=== PATIENT | female | born 1935 | race Caucasian/White ===

== ENCOUNTER 2019-06-05 13:35 | Emergency (ER) | payer MEDICARE, BC ==
--- NOTE | 2019-06-05 13:46 | ED ---
Complex/Multi-Sys Presentation - HPI Summary HPI Summary: 84 year old F presenting to [facility] via EMS with a chief complaint of anxiety, depression, and difficulty urinating since yesterday. The patient rates the pain _/10 in severity. Symptoms aggravated by nothing. Symptoms alleviated by nothing. Patient reports abdominal pain secondary to being unable to urinate, thoughts of harming herself last night, and frustration with her overnight aide. Patient denies dysuria, fever, chills, or vomiting. The patient states that she ate breakfast then went back to bed. She denies any cigarette or alcohol use. Medication list reviewed. Allergy list reviewed. Home Medications Medication Instructions Recorded Confirmed Type Aspirin 81 1 tab PO DAILY 05/03/14 05/03/14 History Levothyroxine TAB* [Synthroid 88 1 tab PO DAILY 05/03/14 05/03/14 History MCG TAB*] Losartan Potassium & Hydrochlo 1 tab PO DAILY 05/03/14 05/03/14 History [Losartan Potassium/Hydroc 100-25 mg] Metoprolol 50 mg PO BEDTIME 05/03/14 05/03/14 History Ranitidine TAB (NF) [Zantac TAB 300 mg PO BEDTIME 05/03/14 05/03/14 History (NF)] Simvastatin 1 tab PO DAILY 05/03/14 05/03/14 History - History Of Current Complaint Hx Obtained From: Patient, EMS Onset/Duration: Lasting Hours, Still Present Timing: Constant Associated Signs And Symptoms: Positive: Abdominal Pain - Allergies/Home Medications Allergies/Adverse Reactions: Allergies Allergy/AdvReac Type Severity Reaction Status Date / Time Environmental Allergies Allergy Congestion Uncoded 06/05/19 13:41 Home Medications: Home Medications Aspirin 81 1 tab PO DAILY 05/03/14 [History Confirmed 05/03/14] Levothyroxine TAB* [Synthroid 88 MCG TAB*] 1 tab PO DAILY 05/03/14 [History Confirmed 05/03/14] Losartan Potassium & Hydrochlo [Losartan Potassium/Hydroc 100-25 mg] 1 tab PO DAILY 05/03/14 [History Confirmed 05/03/14] Metoprolol 50 mg PO BEDTIME 05/03/14 [History Confirmed 05/03/14] Ranitidine TAB (NF) [Zantac TAB (NF)] 300 mg PO BEDTIME 05/03/14 [History Confirmed 05/03/14] Simvastatin 1 tab PO DAILY 05/03/14 [History Confirmed 05/03/14] PMH/Surg Hx/FS Hx/Imm Hx Endocrine/Hematology History: Reports: Hx Thyroid Disease Denies: Hx Diabetes Cardiovascular History: Reports: Hx Hypertension Respiratory History: Reports: Hx Asthma Denies: Hx Chronic Obstructive Pulmonary Disease (COPD) GI History: Denies: Hx Ulcer - Surgical History Surgery Procedure, Year, and Place: Repair fractured leg and wrist Infectious Disease History: No Infectious Disease History: Denies: Hx Clostridium Difficile, Hx Hepatitis, Hx Human Immunodeficiency Virus (HIV), Hx of Known/Suspected MRSA, Hx Shingles, Hx Tuberculosis, Hx Known/ Suspected VRE, Hx Known/Suspected VRSA, History Other Infectious Disease, Traveled Outside the [place] in Last 30 Days - Social History Alcohol Use: Daily Alcohol Amount: 1 per day Substance Use Type: Reports: None Smoking Status (MU): Former Smoker Length of Time of Smoking/Using Tobacco: 20 years Physical Exam Vital Signs On Initial Exam: Initial Vitals Temp Pulse Resp BP Pulse Ox 98.1 F 66 16 191/81 98 06/05/19 13:36 06/05/19 13:36 06/05/19 13:36 06/05/19 13:36 06/05/19 13:36 Diagnostics - Vital Signs Vital Signs Temp Pulse Resp BP Pulse Ox 06/05/19 13:36 98.1 F 66 16 191/81 98 - Laboratory Lab Statement: Any lab studies that have been ordered have been reviewed, and results considered in the medical decision making process. Discharge ED - Discharge Plan Referrals: Hoda Mathias MD [Primary Care Provider] - - Attestation Statements Document Initiated by Scribe: Yes
[2019-06-05 13:55] LABS: ABS Eosinophils 0.2 10^3/ul (0-0.6); ABS Lymphocytes 1.2 10^3/ul (1.0-4.8); ABS Monocytes 0.6 10^3/ul (0-0.8); ABS Neutrophils 3.8 10^3/ul (1.5-7.7); Eosinophil % 2.9 %; Hematocrit 39 % (35-47); Hemoglobin 13.2 g/dL (12.0-16.0); Lymphocyte % 21.3 %; Mean Corpuscular HGB Conc 34 g/dL (31-36); Mean Corpuscular Hemoglobin 31 pg (27-31); Mean Corpuscular Volume 91 fL (80-97); Mean Platelet Volume 6.9 fL (7.4-10.4); Platelet Count 188 10^3/uL (150-450); Red Blood Count 4.26 10^6 /uL (3.70-4.87); Red Cell Distribution Width 16 % (10-15); White Blood Count 5.8 10^3/uL (3.5-10.8)
[2019-06-05 14:02] LABS: INR 1.02 (0.82-1.09)
[2019-06-05 14:37] LABS: Albumin 4.1 g/dL (3.2-5.2); Albumin/Globulin Ratio 1.5 (1-3); BUN/Creatinine Ratio 10.3 (8-20); Calcium 9.1 mg/dL (8.6-10.3); EGFR African American 53.7 (>60); EGFR Non-African American 44.4 (>60); Globulin 2.7 g/dL (2-4); Total Bilirubin 0.3 mg/dL (0.2-1.0); Total Protein 6.8 g/dL (6.4-8.9)
--- NOTE | 2019-06-05 14:38 | ED ---
Lower Extremity - HPI Summary HPI Summary: 84 year old F presenting to [facility] accompanied by her female ophthalmic aide with a chief complaint of right foot swelling since yesterday morning. PCP ordered US of her RLE today, US revealed blood clot in her right leg. Patient was sent to ED for further workup. The patient rates the pain 0/10 in severity. Symptoms aggravated by nothing. Symptoms alleviated by nothing. Patient denies any chest pain, shortness of breath, or recent long travel. The patient reports being a former smoker. Home medications and allergies are reviewed. Home Medications Medication Instructions Recorded Confirmed Type Aspirin 81 1 tab PO DAILY 05/03/14 05/03/14 History Levothyroxine TAB* [Synthroid 88 1 tab PO DAILY 05/03/14 05/03/14 History MCG TAB*] Losartan Potassium & Hydrochlo 1 tab PO DAILY 05/03/14 05/03/14 History [Losartan Potassium/Hydroc 100-25 mg] Metoprolol 50 mg PO BEDTIME 05/03/14 05/03/14 History Ranitidine TAB (NF) [Zantac TAB 300 mg PO BEDTIME 05/03/14 05/03/14 History (NF)] Simvastatin 1 tab PO DAILY 05/03/14 05/03/14 History - History of Current Complaint Chief Complaint: EDExtremityLower Stated Complaint: BLOOD CLOT RIGHT LEG PER DAUGHTER Time Seen by Provider: 06/05/19 14:30 Hx Obtained From: Patient Severity Currently: None Pain Intensity: 0 Pain Scale Used: 0-10 Numeric Timing: Constant Location: Is Discrete @ - Right Foot Associated Signs And Symptoms: Positive: Swelling Aggravating Factor(s): Nothing Alleviating Factor(s): Nothing Able to Bear Weight: Yes - Allergies/Home Medications Allergies/Adverse Reactions: Allergies Allergy/AdvReac Type Severity Reaction Status Date / Time Environmental Allergies Allergy Congestion Uncoded 06/05/19 13:41 Home Medications: Home Medications Aspirin 81 1 tab PO DAILY 05/03/14 [History Confirmed 05/03/14] Levothyroxine TAB* [Synthroid 88 MCG TAB*] 1 tab PO DAILY 05/03/14 [History Confirmed 05/03/14] Losartan Potassium & Hydrochlo [Losartan Potassium/Hydroc 100-25 mg] 1 tab PO DAILY 05/03/14 [History Confirmed 05/03/14] Metoprolol 50 mg PO BEDTIME 05/03/14 [History Confirmed 05/03/14] Ranitidine TAB (NF) [Zantac TAB (NF)] 300 mg PO BEDTIME 05/03/14 [History Confirmed 05/03/14] Simvastatin 1 tab PO DAILY 05/03/14 [History Confirmed 05/03/14] Apixaban* [Eliquis*] 5 mg PO BID 30 Days #70 tab 06/05/19 [Rx] PMH/Surg Hx/FS Hx/Imm Hx Endocrine/Hematology History: Reports: Hx Thyroid Disease Denies: Hx Diabetes Cardiovascular History: Reports: Hx Hypertension Respiratory History: Reports: Hx Asthma Denies: Hx Chronic Obstructive Pulmonary Disease (COPD) GI History: Denies: Hx Ulcer - Surgical History Surgery Procedure, Year, and Place: Repair fractured leg and wrist Infectious Disease History: No Infectious Disease History: Denies: Hx Clostridium Difficile, Hx Hepatitis, Hx Human Immunodeficiency Virus (HIV), Hx of Known/Suspected MRSA, Hx Shingles, Hx Tuberculosis, Hx Known/ Suspected VRE, Hx Known/Suspected VRSA, History Other Infectious Disease, Traveled Outside the [place] in Last 30 Days - Family History Known Family History: Positive: Diabetes, Other - CVA-Father - Social History Alcohol Use: Daily Alcohol Amount: 1 per day Substance Use Type: Reports: None Smoking Status (MU): Former Smoker Length of Time of Smoking/Using Tobacco: 20 years Review of Systems Positive: Other - Blood clot in right leg Negative: Chest Pain Negative: Shortness Of Breath Positive: Other - Right foot swelling All Other Systems Reviewed And Are Negative: Yes Physical Exam - Summary Physical Exam Summary: Constitutional: Well-developed, Well-nourished, Alert. (-) Distressed Skin: Warm, Dry HENT: Normocephalic; Atraumatic Eyes: Conjunctiva normal Neck: Musculoskeletal ROM normal neck. (-) JVD, (-) Stridor, (-) Tracheal deviation Cardio: Rhythm regular, rate normal, Heart sounds normal; Intact distal pulses; Radial pulses are 2+ and symmetric. (-) Murmur Pulmonary/Chest wall: Effort normal. (-) Respiratory distress, (-) Wheezes, (-) Rales Abd: Soft, (-) tenderness, (-) Distension, (-) Guarding, (-) Rebound Musculoskeletal: 2+ Edema; right lower extremity swollen compared to left; no erythema; no color change. Lymph: (-) Cervical adenopathy Neuro: Alert, Oriented x3 Psych: Mood and affect Normal Triage Information Reviewed: Yes Vital Signs On Initial Exam: Initial Vitals Temp Pulse Resp BP Pulse Ox 98.1 F 66 16 191/81 98 06/05/19 13:36 06/05/19 13:36 06/05/19 13:36 06/05/19 13:36 06/05/19 13:36 Vital Signs Reviewed: Yes Procedures - Sedation Patient Received Moderate/Deep Sedation with Procedure: No Diagnostics - Vital Signs Vital Signs Temp Pulse Resp BP Pulse Ox 06/05/19 13:36 98.1 F 66 16 191/81 98 - Laboratory Lab Results: Lab Results 06/05/19 06/05/19 Range/Units 13:49 13:49 WBC 5.8 (3.5-10.8) 10^3/uL RBC 4.26 (3.70-4.87) 10^6 /uL Hgb 13.2 (12.0-16.0) g/dL Hct 39 (35-47) % MCV 91 (80-97) fL MCH 31 (27-31) pg MCHC 34 (31-36) g/dL RDW 16 H (10-15) % Plt Count 188 (150-450) 10^3/uL MPV 6.9 L (7.4-10.4) fL Neut % (Auto) 64.6 % Lymph % (Auto) 21.3 % Leslie % (Auto) 10.6 % Eos % (Auto) 2.9 % Baso % (Auto) 0.6 % Absolute Neuts (auto) 3.8 (1.5-7.7) 10^3/ul Absolute Lymphs (auto) 1.2 (1.0-4.8) 10^3/ul Absolute Monos (auto) 0.6 (0-0.8) 10^3/ul Absolute Eos (auto) 0.2 (0-0.6) 10^3/ul Absolute Basos (auto) 0.0 (0-0.2) 10^3/ul Absolute Nucleated RBC 0.0 10^3/ul Nucleated RBC % 0.0 INR (Anticoag Therapy) 1.02 (0.82-1.09) Result Diagrams: 06/05/19 13:49 06/05/19 13:49 Lab Statement: Any lab studies that have been ordered have been reviewed, and results considered in the medical decision making process. Lower Extremity Course/Dx - Course Course Of Treatment: Patient is here with a diagnosed DVT that occurred today. Patient's had leg swelling for roughly 24 hours and had an outpatient ultrasound showed a DVT. Patient has no signs or symptoms of PE on exam. Patient has no evidence of limb ischemia on exam. Patient had blood performed which showed slightly elevated creatinine which is her baseline. Patient was started on Eliquis. - Diagnoses Provider Diagnoses: DVT (deep venous thrombosis) Discharge ED - Sign-Out/Discharge Documenting (check all that apply): Patient Departure - Discharge Plan Condition: Stable Disposition: HOME Prescriptions: Apixaban* [Eliquis*] 5 mg PO BID 30 Days #70 tab Patient Education Materials: Deep Vein Thrombosis (ED) Referrals: Hoda Mathias MD [Primary Care Provider] - 3 Days Additional Instructions: Follow-up with Dr. Mathias in 1-3 days. Take your medication as prescribed. Go to the pharmacy to pick it up right away. Return to the emergency department for any chest pain, shortness of breath, heavy falls, rectal bleeding, vaginal bleeding, or uncontrollable nose bleeding. Do not massage your leg. Take Tylenol and use a heating pad for pain. - Billing Disposition and Condition Condition: STABLE Disposition: Home - Attestation Statements Document Initiated by Janna: Yes Documenting Scribe: Joann Randolph Provider For Whom Janna is Documenting (Include Credential): Ron Gibson MD Scribe Attestation: Joann Dolan, scribed for Ron Gibson MD on at 1836. Scribe Documentation Reviewed: Yes Provider Attestation: The documentation as recorded by the janna, Joann Randolph accurately reflects the service I personally performed and the decisions made by , Ron Gibson MD Status of Scribe Document: Viewed
--- OUTSIDE RECORDS SUMMARY | 2019-06-05 14:52 | XMS REPORT | Continuity of Care Document ---
:1935 External Reference #:[id number] Author Name Sapna Borges N.P. 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 Active Problems Provider Date Chronic kidney disease Hoda Mathias MD Onset: 04/18/2019 Mixed hyperlipidemia Hoda Mathias MD Onset: 04/18/2019 Hypothyroidism Hoda Mathias MD Onset: 04/18/2019 Essential hypertension Hoda Mathias MD Onset: 04/18/2019 Social History Type Date Description Comments Sex Unknown ETOH Use Occasionally consumes alcohol Tobacco Use Start: Unknown End: Patient is a former 50 pack years, quit Unknown smoker at age 72 Smoking Status Reviewed: 05/21/19 Patient is a former 50 pack years, quit smoker at age 72 Exercise Exercises regularly Type/Frequency Allergies, Adverse Reactions, Alerts Description No Known Drug Allergies Medications Active Medications SIG Qnty Indications Ordering Provider Date Meclizine HCL take 1 tablet by 14tabs R42 Hoda Mathias MD 02/10/2019 25mg mouth every 8 Tablets hours as needed for vertigo Synthroid Take one tablet 90tabs Hoda Mathias MD 09/10/2018 100mcg daily in morning Tablets Simvastatin 1 by mouth every 90tabs Hoda Mathias MD 20mg day Tablets Metoprolol Succinate Take 1 Tablet By 90tabs Hdoa Mathias MD ER Mouth Every Day 50mg Tablets ER 24HR Melatonin ER 2 tab by mouth as Unknown 10mg needed for sleep Tablets ER Benadryl 2 tabs by mouth Unknown 25mg Capsules at bedtime as needed History Medications Benzonatate take one capsule 30caps R05 Hoda Mathias MD 03/25/2019 - 100mg every 8 hours as 04/08/2019 Capsules needed Proair HFA one puff every 6 8.500gm R05 Hoda Mathias MD 03/25/2019 - 108(90Base) hours 04/08/2019 mcg/Act Aerosol Medications Administered in Office Medication SIG Qnty Indications Ordering Provider Date Depomedrol 40MG Steffen Brown M.D. 10/14/2015 Injection Immunizations CPT Code Status Date Vaccine Lot # [id number] Given 03/11/2018 Fluzone High Dose [id number] Vital Signs Date Vital Result Comment 05/21/2019 3:12pm Height 60 inches 5'0" Weight 140.00 lb Heart Rate 76 /min BP Systolic Sitting 140 mmHg BP Diastolic Sitting 70 mmHg Body Temperature 97.4 F O2 % BldC Oximetry 98 % BMI (Body Mass Index) 27.3 kg/m2 04/18/2019 1:00pm Height 60 inches 5'0" Weight 139.00 lb Heart Rate 74 /min BP Systolic Sitting 133 mmHg BP Diastolic Sitting 73 mmHg Body Temperature 98.9 F O2 % BldC Oximetry 97 % BMI (Body Mass Index) 27.1 kg/m2 Results Test Acquired Date Facility Test Result H/L Range Note Laboratory test 04/18/2019 [facility] TSH 0.85 Normal 0.34- 5.[address] (Thyroid mcIU/[place] [address] Stim Horm) [phone] Urinalysis 03/18/2019 [facility] Urine Yellow Profile [address] [place] [address] [phone] Urine Appearance Clear Urine Specific [place] 1.017 Normal 1.010-1.030 Urine pH 6.0 Normal 5-9 Urine Urobilinogen Negative Negative Urine Ketones Negative Negative Urine Protein Negative Negative Urine Leukocytes Trace Abnormal Negative Urine Blood Negative Negative Urine Nitrite Negative Negative Urine Bilirubin Negative Negative Urine Glucose Negative Negative Urine White Blood Cell Trace(0-5/hpf) Absent Urine Red Blood Cell Absent Absent Urine Bacteria Absent Absent Urine Squamous Epithelial Cell Present Abnormal Absent Urine Culture And 03/18/2019 [facility] Urine Culture SEE RESULT [address] [place] [address] [phone] Basic Metabolic 03/18/2019 [facility] Sodium 131 mmol/L Low 135-[address] [place] [address] [phone] Potassium 4.3 mmol/L Normal 3.5-5.0 Chloride 96 mmol/L Low 101-111 Co2 Carbon Dioxide 28 mmol/L Normal 22-32 Anion Gap 7 mmol/L Normal 2-11 Glucose 101 mg/dL High 70-100 Blood Urea Nitrogen 18 mg/dL Normal 6-24 Creatinine 1.80 mg/dL High 0.51-0.95 BUN/Creatinine Ratio 10.0 Normal 8-20 Calcium 9.1 mg/dL Normal 8.6-10.3 Egfr Non- 26.8 >60 Egfr 32.4 >60 2 CBC Auto 03/18/2019 [facility] White Blood 10.4 10^3/uL Normal 3.5-10.[address] [place] [address] [phone] Red Blood Count 4.17 10^6/uL Normal 3.70-4.87 Hemoglobin 12.9 g/dL Normal 12.0-16.0 Hematocrit 38 % Normal 35-47 Mean Corpuscular Volume 91 fL Normal 80-97 Mean Corpuscular Hemoglobin 31 pg Normal 27-31 Mean Corpuscular HGB Conc 34 g/dL Normal 31-36 Red Cell Distribution Width 14 % Normal 10-15 Platelet Count 178 10^3/uL Normal 150-450 Mean Platelet Volume 7.5 fL Normal 7.4-10.4 Abs Neutrophils 7.5 10^3/uL Normal 1.5-7.7 Abs Lymphocytes 1.3 10^3/uL Normal 1.0-4.8 Abs Monocytes 1.6 10^3/uL High 0-0.8 Abs Eosinophils 0.1 10^3/uL Normal 0-0.6 Abs Basophils 0.0 10^3/uL Normal 0-0.2 Abs Nucleated RBC 0.0 10^3/uL Granulocyte % 71.6 % Lymphocyte % 12.4 % Monocyte % 15.1 % Eosinophil % 0.5 % Basophil % 0.4 % Nucleated Red Blood Cells % 0.1 Basic Metabolic 12/11/2018 [facility] Sodium 138 mmol/L Normal 135-[address] [facility] [place] [address] [phone] Potassium 4.3 mmol/L Normal 3.5-5.0 Chloride 104 mmol/L Normal 101-111 Co2 Carbon Dioxide 30 mmol/L Normal 22-32 Anion Gap 4 mmol/L Normal 2-11 Glucose 104 mg/dL High 70-100 Blood Urea Nitrogen 12 mg/dL Normal 6-24 Creatinine 1.37 mg/dL High 0.51-0.95 BUN/Creatinine Ratio 8.8 Normal 8-20 Calcium 9.2 mg/dL Normal 8.6-10.3 Egfr Non- 36.7 >60 Egfr 44.4 >60 3 1 SEE RESULT BELOW Name: ROSEY RAGSDALE : [address]: Tina James MD Acct: [id number] Unit: [id number] AGE: 83 Location: [facility] Re03/18/19 SEX: F Status: REG REF SPEC: [id number] GUERRERO: 03/18/[address]: Tina James MD REQ: [id number] RECD: 03/18/19 STATUS: COMP _ SOURCE: URINE SPDESC: ORDERED: Urine Culture Urine Source: Clean Catch Procedure Result Reported Site Urine Culture Final 03/19/19- 36 ML No Growth (<1,000 CFU/mL) * ML - Main Lab . END OF REPORT DEPARTMENT OF PATHOLOGY, [address] [place] [address] John Miguel M.D. Director [facility] # [id number] 2 Because ethnic data is not always readily available, this report includes an eGFR for both -Americans and non- Americans. The National Kidney Disease Education Program (NKDEP) does not endorse the use of the MDRD equation for patients that are not between the ages of 18 and 70, are , have extremes of body size, muscle mass, or nutritional status, or are non- or non-. According to the National Kidney Foundation, irrespective of diagnosis, the stage of the disease is based on the level of kidney function: Stage Description GFR(mL/min/1.73 m(2)) 1 Kidney damage with normal or decreased GFR 90 2 Kidney damage with mild decrease in GFR 60-89 3 Moderate decrease in GFR 30-59 4 Severe decrease in GFR 15-29 5 Kidney failure <15 (or dialysis) 3 Because ethnic data is not always readily available, this report includes an eGFR for both -Americans and non- Americans. The National Kidney Disease Education Program (NKDEP) does not endorse the use of the MDRD equation for patients that are not between the ages of 18 and 70, are , have extremes of body size, muscle mass, or nutritional status, or are non- or non-. According to the National Kidney Foundation, irrespective of diagnosis, the stage of the disease is based on the level of kidney function: Stage Description GFR(mL/min/1.73 m(2)) 1 Kidney damage with normal or decreased GFR 90 2 Kidney damage with mild decrease in GFR 60-89 3 Moderate decrease in GFR 30-59 4 Severe decrease in GFR 15-29 5 Kidney failure <15 (or dialysis) Procedures Description No Information Available Medical Devices Description No Information Available Encounters Type Date Location Provider Dx Diagnosis Office Visit 04/18/2019 [facility] Internal Hoda Mathias MD I10 Essential ( primary) 1:20p Medicine - Luis hypertension E03.9 Hypothyroidism, unspecified E78.2 Mixed hyperlipidemia N18.9 Chronic kidney disease, unspecified G47.00 Insomnia, unspecified Office Visit 03/25/2019 1:00p [facility] Internal Medicine - Hoda Mathias MD R05 Cough Ccmob I10 Essential (primary) hypertension Office Visit 03/18/2019 2:00p [facility] Internal Tina R50.9 Fever, unspecified Medicine - MD Jacob Ccmob I95.89 Other hypotension R09.89 Oth symptoms and signs involving the circ and resp systems Office Visit 02/10/2019 2:00p [facility] Internal Hoda Mathias R42 [facility] Office Visit 12/24/2018 2:00p [facility] Internal Hoda Mathias I10 Essential ( primary) Medicine - Luis PAULSON hypertension Office Visit 12/10/2018 3:40p [facility] Internal Jurgen Peacock0 Essential ( primary) Medicine - Luis PAULSON hypertension E03.9 Hypothyroidism, unspecified E78.2 Mixed hyperlipidemia G47.00 Insomnia, unspecified N18.9 Chronic kidney disease, unspecified Assessments Date Code Description Provider 05/21/2019 I10 Essential (primary) hypertension Sami Celaya.P. 05/21/2019 N18.9 Chronic kidney disease, unspecified Sapan Borges, N.P. 05/21/2019 E03.9 Hypothyroidism, unspecified Sapna Borges, N.P. 04/18/2019 I10 Essential (primary) hypertension Hoda Mathias MD 04/18/2019 E03.9 Hypothyroidism, unspecified Hoda Mathias MD 04/18/2019 E78.2 Mixed hyperlipidemia Hoda Mathias MD 04/18/2019 N18.9 Chronic kidney disease, unspecified Hoda Mathias MD 04/18/2019 G47.00 Insomnia, unspecified Hoda Mathias MD 03/25/2019 R05 Cough Hoda Mathias MD 03/25/2019 I10 Essential (primary) hypertension Hoda Mathias MD 03/18/2019 R50.9 Fever, unspecified Tina James MD 03/18/2019 I95.89 Other hypotension Tina James MD 03/18/2019 R09.89 Other specified symptoms and signs involving Tina James MD the circulatory and respiratory systems 02/10/2019 R42 Dizziness and giddiness Hoda Mathias MD 12/24/2018 I10 Essential (primary) hypertension Hoda Mathias MD 12/10/2018 I10 Essential (primary) hypertension Hoda Mathias MD 12/10/2018 E03.9 Hypothyroidism, unspecified Hoda Mathias MD 12/10/2018 E78.2 Mixed hyperlipidemia Hoda Mathias MD 12/10/2018 G47.00 Insomnia, marlenyified Hoda Mathias MD 12/10/2018 N18.9 Chronic kidney disease, unspecified Hoda Mathias MD Plan of Treatment Future Appointment(s):08/19/2019 10:40 am - Hoda Mathias MD at [facility] - Sapna Borges, N.P.I10 Essential (primary) hypertensionComments:For your high blood pressure: Continue with your current medication. I would like you to monitor your blood pressure at home. If your readings at home are consistently higher than 140/90, please call the office.N18.9 Chronic kidney disease, unspecifiedComments:I am repeating your Creatinine level to see how your kidneys are doing. The office will contact you with your results.E03.9 Hypothyroidism, unspecifiedComments:For your hypothyroidism: Your recent blood work showed your thyroid levels were in normal range. Continue with your current dose of medication. Functional Status Description No Information Available Mental Status Description No Information Available Referrals Description No Information Available
--- OUTSIDE RECORDS SUMMARY | 2019-06-05 14:52 | XMS REPORT | Continuity of Care Document ---
:1935 External Reference #:[id number] Author Name Hoda Mathias MD (transmitted by agent of provider Anne Ordoñez) Address [address], [place] [address] Care Team Providers Name Role Phone Hoda Mathias MD - Internal Medicine Care Team Information [employer]er Problems Active Problems Provider Date Chronic kidney [...] smoker at age 72 Smoking Status Reviewed: 06/05/19 Patient is a former 50 pack years, quit smoker at age 72 Exercise Exercises regularly Type/Frequency Allergies, Adverse Reactions, Alerts Description No Known Drug Allergies Medications Active Medications SIG Qnty Indications Ordering Provider Date Meclizine HCL take 1 tablet by 14tabs R42 Hoda Mathias MD 02/10/2019 25mg mouth every 8 Tablets hours as needed for vertigo Synthroid take one tablet 90tabs Hoda Mathias MD 09/10/2018 100mcg daily in morning Tablets Simvastatin 1 by mouth every 90tabs Hoda Mathias MD 20mg day Tablets Metoprolol Succinate Take 1 Tablet By 90tabs Hoda Mathias MD ER Mouth Every Day 50mg [...] CPT Code Status Date Vaccine Lot # [id number] Given 03/11/2018 Fluzone High Dose [id number] Vital Signs Date Vital Result Comment 06/05/2019 10:20am Height 60 inches 5'0" Weight 138.00 lb Heart Rate 70 /min BP Systolic 186 mmHg manual BP Diastolic 88 mmHg manual BP Systolic Sitting 180 mmHg machine BP Diastolic Sitting 92 mmHg machine Body Temperature 97.9 F O2 % BldC Oximetry 98 % BMI (Body Mass Index) 26.9 kg/m2 05/28/2019 4:00pm Height 60 inches 5'0" Weight 137.50 lb Heart Rate 69 /min BP Systolic Sitting 140 mmHg BP Diastolic Sitting 78 mmHg Body Temperature 98.4 F O2 % BldC Oximetry 97 % BMI (Body Mass Index) 26.9 kg/m2 Results Test Acquired Date Facility Test Result H/L Range Note Comp Metabolic 05/21/2019 [facility] [facility] Sodium 140 mmol/L Normal 135-145 Panel [address] [place] [address] [phone] Potassium 4.5 mmol/L Normal 3.5-5.0 Chloride 106 mmol/L Normal 101-111 Co2 Carbon Dioxide 28 mmol/L Normal 22-32 Anion Gap 6 mmol/L Normal 2-11 Glucose 86 mg/dL Normal 70-100 Blood Urea Nitrogen 13 mg/dL Normal 6-24 Creatinine 1.35 mg/dL High 0.51-0.95 BUN/Creatinine Ratio 9.6 Normal 8-20 Calcium 9.2 mg/dL Normal 8.6-10.3 Total Protein 6.3 g/dL Low 6.4-8.9 Albumin 4.0 g/dL Normal 3.2-5.2 Globulin 2.3 g/dL Normal 2-4 Albumin/Globulin Ratio 1.7 Normal 1-3 Total Bilirubin 0.30 mg/dL Normal 0.2-1.0 Alkaline Phosphatase 92 U/L Normal 34-104 Alt 42 U/L Normal 7-52 Ast 57 U/L High 13-39 Egfr Non- 37.3 >60 Egfr 45.1 >60 1 Laboratory 04/18/2019 [facility] [facility] TSH (Thyroid 0.85 Normal 0.34 -5.60 test finding [address] Stim Horm) mcIU/[place] [address] [phone] Urinalysis 03/18/2019 [facility] [facility] Urine Color Yellow Profile [address] [place] [address] [phone] Urine Appearance Clear Urine Specific [place] 1.017 Normal 1.010-1.030 Urine pH 6.0 Normal [...] Present Abnormal Absent Urine Culture And 03/18/2019 [facility] [place] [facility] Urine Culture SEE RESULT [address] [place] [address] [phone] Basic Metabolic 03/18/2019 [facility] [place] [facility] Sodium 131 mmol/L Low 135-[address] [place] [address] [phone] Potassium 4.3 mmol/L Normal 3.5-5.0 Chloride 96 mmol/L Low 101-111 Co2 Carbon Dioxide 28 mmol/L Normal 22-32 Anion Gap 7 mmol/L Normal 2-11 Glucose 101 mg/dL High 70-100 Blood Urea Nitrogen 18 mg/dL Normal 6-24 Creatinine 1.80 mg/dL High 0.51-0.95 BUN/Creatinine Ratio 10.0 Normal 8-20 Calcium 9.1 mg/dL Normal 8.6-10.3 Egfr Non- 26.8 >60 Egfr 32.4 >60 3 CBC Auto 03/18/2019 [facility] [facility] White Blood 10.4 10^3/uL Normal 3.5-10.[address] [place] [address] [phone] Red Blood Count 4.17 10^6/uL Normal 3.70-4.87 [...] Blood Cells % 0.1 Basic Metabolic 12/11/2018 [facility] Sodium 138 mmol/L Normal 135-145 Panel [address] [place] [address] [phone] Potassium 4.3 mmol/L Normal 3.5-5.0 Chloride 104 mmol/L Normal 101-111 Co2 Carbon Dioxide 30 mmol/L Normal 22-32 Anion Gap 4 mmol/L Normal 2-11 Glucose 104 mg/dL High 70-100 Blood Urea Nitrogen 12 mg/dL Normal 6-24 Creatinine 1.37 mg/dL High 0.51-0.95 BUN/Creatinine Ratio 8.8 Normal 8-20 Calcium 9.2 mg/dL Normal 8.6-10.3 Egfr Non- 36.7 >60 Egfr 44.4 >60 4 1 Because ethnic data is not always readily [...] 15-29 5 Kidney failure <15 (or dialysis) 2 SEE RESULT BELOW Name: ROSEY RAGSDALE : [address]: Tina James MD Acct: [id number] Unit: [id number] AGE: 83 Location: [facility] Re03/18/19 SEX: F Status: REG REF SPEC: [id number] GUERRERO: 03/18/[address]: Tina James MD REQ: [id number] RECD: 03/18/19 STATUS: COMP _ SOURCE: URINE SPDESC: ORDERED: Urine Culture Urine Source: Clean Catch Procedure Result Reported Site Urine Culture Final 03/19/19- 36 ML No Growth (<1,000 CFU/mL) * ML - Main Lab . END OF REPORT DEPARTMENT OF PATHOLOGY, [address] [place] [address] John Miguel M.D. Director [facility] # [id number] 3 Because ethnic data is not always [...] 15-29 5 Kidney failure <15 (or dialysis) 4 Because ethnic data is not always readily [...] Date Location Provider Dx Diagnosis Office Visit 05/28/2019 [facility] Internal Sapna Borges, M46.1 Sacroiliitis, not 3:40p Medicine - Ccmob N.P. elsewhere classified Office Visit 05/21/2019 [facility] Internal Sapna Borges I10 Essential (primary ) 3:20p Medicine - Sophieob N.P. hypertension N18.9 Chronic kidney disease, unspecified E03.9 Hypothyroidism, unspecified R41.81 Age-related cognitive decline Office Visit 04/18/2019 1:20p [facility] Internal Jurgen Peacock0 Essential ( primary) Medicine - Luis PAULSON hypertension E03.9 Hypothyroidism, unspecified E78.2 Mixed hyperlipidemia N18.9 Chronic kidney disease, unspecified G47.00 Insomnia, unspecified Office Visit 03/25/2019 1:00p [facility] Internal Medicine - Hoda Mathias MD R05 Cough Sophieob I10 Essential (primary) hypertension Office Visit 03/18/2019 2:00p [facility] Internal Tina R50.9 Fever, unspecified Medicine - MD Jacob Ccmob I95.89 Other hypotension R09.89 Oth symptoms and signs involving the circ and resp systems Office Visit 02/10/2019 2:00p [facility] Internal Hoda Mathias R42 Dizziness and Medicine - Luis PAULSON giddiness Office Visit 12/24/2018 2:00p [facility] Internal Hoda Mathias I10 Essential ( primary) Medicine - Luis PAULSON hypertension Office Visit 12/10/2018 3:40p [facility] Internal Hoda Stew, I10 Essential ( primary) Medicine - Luis hypertension E03.9 Hypothyroidism, unspecified E78.2 Mixed hyperlipidemia G47.00 Insomnia, unspecified N18.9 Chronic kidney disease, unspecified Assessments Date Code Description Provider 06/05/2019 R22.41 Localized swelling, mass and lump, right lower Hoda Mathias MD limb 05/28/2019 M46.1 Sacroiliitis, not elsewhere classified Sapna Borges, N.P. 05/21/2019 I10 Essential (primary) hypertension Sapna Borges, N.P. 05/21/2019 N18.9 Chronic kidney disease, unspecified Sapna Borges, N.P. 05/21/2019 E03.9 Hypothyroidism, unspecified Sapna Borges, N.P. 05/21/2019 R41.81 Age-related cognitive decline Sapna Borges, N.P. 04/18/2019 I10 Essential (primary) [...] hyperlipidemia Hoda Mathias MD 12/10/2018 G47.00 Insomnia, unspecified Hoda Mathias MD 12/10/2018 N18.9 Chronic kidney disease, unspecified Hoda Mathias MD Plan of Treatment Future Appointment(s):08/19/2019 10:40 am - [facility] Hoda Mathias, MDR22.41 Localized swelling, mass and lump, right lower limbNew Xrays:Venous Doppler Lower Right Ext, Ordered: Functional Status Description No Information Available Mental Status Description No Information Available Referrals Description No Information Available
--- OUTSIDE RECORDS SUMMARY | 2019-06-05 14:52 | XMS REPORT | Continuity of Care Document ---
:1935 External Reference #:[id number] Author Name Hoda Mathias MD (transmitted by agent of provider Alyssa George) Address [address], [place] [address] Care Team Providers Name Role Phone Hoda Mathias MD - Internal Medicine Care Team Information [employer] [phone] Problems Active Problems Provider Date Chronic kidney [...] smoker at age 72 Smoking Status Reviewed: 04/18/19 Patient is a former 50 pack years, quit smoker at age 72 Exercise Exercises regularly Type/Frequency Allergies, Adverse Reactions, Alerts Description No Known Drug Allergies Medications Active Medications SIG Qnty Indications Ordering Provider Date Benzonatate take one capsule 30caps R0Caron Mathias MD 03/25/2019 100mg every 8 hours as Capsules needed Proair HFA one puff every 6 8.500gm R05 Hoda Mathias MD 03/25/2019 hours 108(90Base) mcg/Act Aerosol Meclizine HCL take 1 tablet by 14tabs R42 Hoda Mathias MD 02/10/2019 25mg mouth every 8 Tablets hours as needed for vertigo Synthroid Take one tablet 90tabs Hoda Mathias MD 09/10/2018 100mcg daily in morning Tablets Shingrix inject per 2units Z23 Hoda Mathias MD 08/29/2018 50mcg/0.5ML protocol Suspension Rec Simvastatin 1 by mouth every 90tabs Hoda Mathias MD 20mg day Tablets Metoprolol Succinate 1 by mouth every 90tabs Hoda Mathias MD ER day 50mg Tablets ER 24HR Melatonin ER 2 tab by mouth as Unknown 10mg needed for sleep Tablets ER Benadryl 2 tabs by mouth Unknown 25mg at bedtime as Capsules needed Ibu-200 2 tabs as needed Unknown 200mg Tablets Medications Administered in Office Medication SIG Qnty Indications Ordering Provider Date Depomedrol 40MG Steffen Brown M.D. 10/14/2015 Injection Immunizations CPT Code Status Date Vaccine Lot # [id number] Given 03/11/2018 Fluzone High Dose [id number] Vital Signs Date Vital Result Comment 04/18/2019 1:00pm Height 60 inches 5'0" Weight 139.00 lb Heart Rate 74 /min BP Systolic Sitting 133 mmHg BP Diastolic Sitting 73 mmHg Body Temperature 98.9 F O2 % BldC Oximetry 97 % BMI (Body Mass Index) 27.1 kg/m2 03/25/2019 1:05pm Height 60 inches 5'0" Weight 139.00 lb Heart Rate 70 /min BP Systolic Sitting 126 mmHg BP Diastolic Sitting 68 mmHg Body Temperature 98.9 F O2 % BldC Oximetry 95 % BMI (Body Mass Index) 27.1 kg/m2 Results Test Acquired Date Facility Test Result H/L Range Note Urinalysis Profile 03/18/2019 [facility] [facility] Urine Color Yellow [address] [place] [address] [phone] Urine Appearance Clear Urine Specific [place] 1.017 Normal 1.010-1.030 Urine pH 6.0 Normal [...] [facility] Urine Culture SEE RESULT [address] [place] [address] [phone] Basic Metabolic 03/18/2019 [facility] Sodium 131 mmol/L Low 135-[address] [place] [address] [phone] Potassium 4.3 mmol/L Normal 3.5-5.0 Chloride 96 mmol/L Low 101-111 Co2 Carbon Dioxide 28 mmol/L Normal 22-32 Anion Gap 7 mmol/L Normal 2-11 Glucose 101 mg/dL High 70-100 Blood Urea Nitrogen 18 mg/dL Normal 6-24 Creatinine 1.80 mg/dL High 0.51-0.95 BUN/Creatinine Ratio 10.0 Normal 8-20 Calcium 9.1 mg/dL Normal 8.6-10.3 Egfr Non- 26.8 >60 Egfr 32.4 >60 2 CBC Auto 03/18/2019 [facility] White Blood 10.4 10^3/uL Normal 3.5-10.[address] [place] [address] [phone] Red Blood Count 4.17 10^6/uL Normal 3.70-4.87 [...] mmol/L Normal 135-[address] [place] [address] [phone] Potassium 4.3 mmol/L Normal 3.5-5.0 Chloride 104 [...] [address]: Tina James MD Acct: [id number] Unit: [id number] AGE: 83 Location: [facility] Re03/18/19 SEX: F Status: REG REF SPEC: [id number] GUERRERO: 03/18/[address]: Tina James MD REQ: [id number] RECD: 03/18/19 STATUS: COMP _ SOURCE: URINE SPDESC: ORDERED: Urine Culture Urine Source: Clean Catch Procedure Result Reported Site Urine Culture Final 03/19/19- 36 ML No Growth (<1,000 CFU/mL) * ML - Main Lab . END OF REPORT DEPARTMENT OF PATHOLOGY, [address] [place] [address] John Miguel M.D. Director [facility] # [id number] 2 Because ethnic data is not always [...] Date Location Provider Dx Diagnosis Office Visit 03/25/2019 1:00p [facility] Internal Medicine - Hdoa Mathias MD R05 Cough Ccmob I10 Essential (primary) hypertension Office Visit 03/18/2019 2:00p [facility] Internal Tina R50.9 Fever, unspecified Medicine - MD Jacob Ccmob I95.89 Other hypotension R09.89 Oth symptoms and signs involving the circ and resp systems Office Visit 02/10/2019 2:00p [facility] Internal Hoda Mathias R42 Dizziness and Medicine - Luis PAULSON giddiness Office Visit 12/24/2018 2:00p [facility] Internal Hoda Mathias, I10 Essential ( primary) Medicine - Luis PAULSON hypertension Office Visit 12/10/2018 3:40p [facility] Internal Hoda Mathias I10 Essential ( primary) Medicine - Luis PAULSON hypertension E03.9 Hypothyroidism, unspecified E78.2 Mixed hyperlipidemia G47.00 Insomnia, unspecified N18.9 Chronic kidney disease, unspecified Assessments Date Code Description Provider 04/18/2019 I10 Essential (primary) hypertension Hoda Mathias [...] 10:40 am - Hoda Mathias MD at [facility] Internal Medicine - Ccmob04/18/2019 - Hoda Mathias MDI10 Essential (primary) hypertensionComments:BP is looking good. No need to restart LosartanContinue metoprolol 50 mgFollow up:F/U 4 joozdjU81.9 Hypothyroidism, unspecifiedComments: Will check lab again to see if this is the right dose for youE78.2 Mixed hyperlipidemiaComments:Stay on the same dose of uzuuqgqdluH87.9 Chronic kidney disease, unspecifiedComments:WlpohaW59.00 Insomnia, unspecifiedComments:Try to decrease the dose of melatonin to 6 mg every night Try to decrease the benadryl to 25mg Functional Status Description No Information Available Mental Status Description No Information Available Referrals Description No Information Available
--- OUTSIDE RECORDS SUMMARY | 2019-06-05 14:52 | XMS REPORT | Continuity of Care Document ---
:1935 External Reference #:[id number] Author Name Sapna Borges N.P. (transmitted by agent of provider Abida Shook) Address [address] , [address] [place] [address] Care Team Providers Name Role Phone Hoda Mathias MD - Internal Medicine Care Team Information [employer] Clerk [phone] Problems Active Problems Provider Date Chronic kidney [...] CPT Code Status Date Vaccine Lot # [id number] Given 03/11/2018 Fluzone High Dose [id number] Vital Signs Date Vital Result Comment 05/21/2019 [...] Result H/L Range Note Laboratory test 04/18/2019 [facility] TSH 0.85 Normal 0.34- 5.[address] (Thyroid mcIU/[place] [address] Stim Horm) [phone] Urinalysis 03/18/2019 [facility] Urine Yellow Profile [address] [place] [address] [phone] Urine Appearance Clear Urine Specific [place] 1.017 Normal 1.010-1.030 Urine pH 6.0 Normal [...] Present Abnormal Absent Urine Culture And 03/18/2019 [facility] Urine Culture SEE RESULT [address] [place] [address] [phone] Basic Metabolic 03/18/2019 [facility] Sodium 131 mmol/L Low 135-[address] [place] [address] [phone] Potassium 4.3 mmol/L Normal 3.5-5.0 Chloride 96 mmol/L Low 101-111 Co2 Carbon Dioxide 28 mmol/L Normal 22-32 Anion Gap 7 mmol/L Normal 2-11 Glucose 101 mg/dL High 70-100 Blood Urea Nitrogen 18 mg/dL Normal 6-24 Creatinine 1.80 mg/dL High 0.51-0.95 BUN/Creatinine Ratio 10.0 Normal 8-20 Calcium 9.1 mg/dL Normal 8.6-10.3 Egfr Non- 26.8 >60 Egfr 32.4 >60 2 CBC Auto 03/18/2019 [facility] White Blood 10.4 10^3/uL Normal 3.5-10.[address] [place] [address] [phone] Red Blood Count 4.17 10^6/uL Normal 3.70-4.87 [...] Blood Cells % 0.1 Basic Metabolic 12/11/2018 [facility] Sodium 138 mmol/L Normal 135-[address] [address] [phone] Potassium 4.3 mmol/L Normal 3.5-5.0 Chloride 104 [...] [address]: Tina James MD Acct: [id number] Unit: [id number] AGE: 83 Location: [facility] Re03/18/19 SEX: F Status: REG REF SPEC: [id number] GUERRERO: 03/18/[address]: Tina James MD REQ: [id number] RECD: 03/18/19 STATUS: COMP _ SOURCE: URINE SPDESC: ORDERED: Urine Culture Urine Source: Clean Catch Procedure Result Reported Site Urine Culture Final 03/19/19- 36 ML No Growth (<1,000 CFU/mL) * ML - Main Lab . END OF REPORT DEPARTMENT OF PATHOLOGY, [address] [place] [address] John Miguel M.D. Director [facility] # [id number] 2 Because ethnic data is not always [...] Location Provider Dx Diagnosis Office Visit 04/18/2019 [facility] Internal Hoda Mathias MD I10 Essential ( primary) 1:20p Medicine - Luis hypertension E03.9 Hypothyroidism, unspecified E78.2 Mixed hyperlipidemia N18.9 Chronic kidney disease, unspecified G47.00 Insomnia, unspecified Office Visit 03/25/2019 1:00p [facility] Internal Medicine - Hoda Mathias MD R05 Cough Ccmob I10 Essential (primary) hypertension Office Visit 03/18/2019 2:00p [facility] Internal Tina R50.9 Fever, unspecified Medicine - MD Jacob Ccmob I95.89 Other hypotension R09.89 Oth symptoms and signs involving the circ and resp systems Office Visit 02/10/2019 2:00p [facility] Internal Hoda Mathias R42 [facility] Office Visit 12/24/2018 2:00p [facility] Internal Hoda Mathias I10 Essential ( primary) Medicine - Luis PAULSON hypertension Office Visit 12/10/2018 3:40p [facility] Internal Jurgen Peacock0 Essential ( primary) Medicine - Luis PAULSON hypertension E03.9 Hypothyroidism, unspecified E78.2 Mixed hyperlipidemia G47.00 Insomnia, unspecified N18.9 Chronic kidney disease, unspecified Assessments Date Code Description Provider 05/21/2019 I10 Essential (primary) hypertension Sami Celaya.P. 05/21/2019 N18.9 Chronic kidney disease, unspecified Sapna [...] 10:40 am - H[facility] Sapna Borges, N.P.I10 Essential (primary) hypertensionComments:For [...]
--- OUTSIDE RECORDS SUMMARY | 2019-06-05 14:52 | XMS REPORT | Continuity of Care Document ---
:1935 External Reference #:[id number] Author Name Sapna Borges N.P. 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 Problems Active Problems Provider Date Chronic kidney [...] smoker at age 72 Smoking Status Reviewed: 05/28/19 Patient is a former 50 pack years, [...] CPT Code Status Date Vaccine Lot # [id number] Given 03/11/2018 Fluzone High Dose [id number] Vital Signs Date Vital Result Comment 05/28/2019 4:00pm Height 60 inches 5'0" Weight 137.50 lb Heart Rate 69 /min BP Systolic Sitting 140 mmHg BP Diastolic Sitting 78 mmHg Body Temperature 98.4 F O2 % BldC Oximetry 97 % BMI (Body Mass Index) 26.9 kg/m2 05/21/2019 3:12pm Height 60 inches 5'0" Weight 140.00 lb Heart Rate 76 /min BP Systolic Sitting 140 mmHg BP Diastolic Sitting 70 mmHg Body Temperature 97.4 F O2 % BldC Oximetry 98 % BMI (Body Mass Index) 27.3 kg/m2 Results Test Acquired Date Facility Test Result H/L Range Note Comp Metabolic 05/21/2019 [facility] Sodium 140 mmol/L Normal 135-145 Panel [address] [place] [address] [phone] Potassium 4.5 mmol/L Normal 3.5-5.0 Chloride 106 [...] >60 Egfr 45.1 >60 1 Laboratory 04/18/2019 [facility] TSH (Thyroid 0.85 Normal 0.34 -5.60 test finding [address] Stim Horm) mcIU/[place] [address] [phone] Urinalysis 03/18/2019 [facility] Urine Color Yellow Profile [address] [place] [address] [phone] Urine Appearance Clear Urine Specific [place] 1.017 Normal 1.010-1.030 Urine pH 6.0 Normal [...] Present Abnormal Absent Urine Culture And 03/18/2019 [facility] Urine Culture SEE RESULT [address] [place] [address] [phone] Basic Metabolic 03/18/2019 [facility] Sodium 131 mmol/L Low 135-[address] [place] [address] [phone] Potassium 4.3 mmol/L Normal 3.5-5.0 Chloride 96 mmol/L Low 101-111 Co2 Carbon Dioxide 28 mmol/L Normal 22-32 Anion Gap 7 mmol/L Normal 2-11 Glucose 101 mg/dL High 70-100 Blood Urea Nitrogen 18 mg/dL Normal 6-24 Creatinine 1.80 mg/dL High 0.51-0.95 BUN/Creatinine Ratio 10.0 Normal 8-20 Calcium 9.1 mg/dL Normal 8.6-10.3 Egfr Non- 26.8 >60 Egfr 32.4 >60 3 CBC Auto 03/18/2019 [facility] White Blood 10.4 10^3/uL Normal 3.5-10.[address] [place] [address] [phone] Red Blood Count 4.17 10^6/uL Normal 3.70-4.87 [...] Blood Cells % 0.1 Basic Metabolic 12/11/2018 [facility] Sodium 138 mmol/L Normal 135-[address] [place] [address] [phone] Potassium 4.3 mmol/L Normal 3.5-5.0 Chloride 104 [...] [address]: Tina James MD Acct: [id number] Unit: [id number] AGE: 83 Location: [facility] Re03/18/19 SEX: F Status: REG REF SPEC: [id number] GUERRERO: 03/18/[address] [facility] [address]: Tina James MD REQ: [id number] RECD: 03/18/19 STATUS: COMP _ SOURCE: URINE SPDESC: ORDERED: Urine Culture Urine Source: Clean Catch Procedure Result Reported Site Urine Culture Final 03/19/19- 0936 ML No Growth (<1,000 CFU/mL) * ML - Main Lab . END OF REPORT DEPARTMENT OF PATHOLOGY, [address] [place] [address] John Miguel M.D. Director [facility] # [id number] 3 Because ethnic data is not always [...] Date Location Provider Dx Diagnosis Office Visit 05/21/2019 [facility] Internal Sapna Borges I10 Essential (primary ) 3:20p Medicine - Luis N.P. hypertension N18.9 Chronic kidney disease, unspecified E03.9 Hypothyroidism, unspecified R41.81 Age-related cognitive decline Office Visit 04/18/2019 1:20p [facility] Internal Hoda Mathias I10 Essential ( primary) Medicine - Luis PAULSON hypertension E03.9 Hypothyroidism, unspecified E78.2 Mixed hyperlipidemia N18.9 Chronic kidney disease, unspecified G47.00 Insomnia, unspecified Office Visit 03/25/2019 1:00p [facility] Internal Medicine - Hoda Mathias MD R05 Cough Ccmob I10 Essential (primary) hypertension Office Visit 03/18/2019 2:00p [facility] Internal Tina R50.9 Fever, unspecified Medicine - MD Jacob Ccmob I95.89 Other hypotension R09.89 Oth symptoms and signs involving the circ and resp systems Office Visit 02/10/2019 2:00p [facility] Internal Hoda Mathias R42 Dizziness and Medicine Catracho Smith MD giddiness Office Visit 12/24/2018 2:00p [facility] Internal Hoda Mathias I10 Essential ( primary) Medicine Catracho Smith MD hypertension Office Visit 12/10/2018 3:40p [facility] Internal Jurgen Peacock0 Essential ( primary) Medicine Catracho Smith MD hypertension E03.9 Hypothyroidism, unspecified E78.2 Mixed hyperlipidemia G47.00 Insomnia, unspecified N18.9 Chronic kidney disease, unspecified Assessments Date Code Description Provider 05/28/2019 M46.1 Sacroiliitis, not elsewhere classified Sapna [...] unspecified Hoda Mathias MD 04/18/2019 G47.00 Insomnia, marlenyified Hoda Mathias MD 03/25/2019 R05 Cough Hoda [...] 10:40 am - Hoda Mathias MD at [facility] Internal Medicine - [facility]05/28/2019 - Sapna Borges, N.P.M46.1 Sacroiliitis, not elsewhere classifiedNew Therapy:Physical TherapyComments:You have an inflammation of the joints where your pelvic bone and sacrum meet. If your pain returns I have given you and order for physical therapy.If you need anything for pain I encourage you to takeAcetaminophen. Applying heat for 20 minutes off and on would be helpful as well. Be sure to avoid heavy lifting. Functional Status Description No Information Available Mental Status Description No Information Available Referrals Description No Information Available
[2019-06-05 15:10] VITALS: BP 168/74
== END 2019-06-05 15:09 | disposition home or self-care (01) ==
LOC: ED 13:35
DX: I82.401 Acute embolism and thrombosis of unspecified deep veins of right lower extremity (principal); E07.9 Disorder of thyroid, unspecified; I10 Essential (primary) hypertension; Z79.01 Long term (current) use of anticoagulants; Z79.82 Long term (current) use of aspirin; Z79.899 Other long term (current) drug therapy; Z87.891 Personal history of nicotine dependence
CPT/HCPCS: 36415; 80053; 85025; 85610; 99282

== ENCOUNTER 2019-06-07 12:47 | Emergency (ER) | payer MEDICARE, BC ==
--- NOTE | 2019-06-07 12:56 | ED ---
Back Pain - HPI Summary HPI Summary: This pt is an 84 Y/O F presenting to [facility] with a CC of R low back pain. She was Dx with multiple DVTs in her R leg a couple days ago per EMS and started to take Elequis. She states that her back pain started weeks ago and has increased in severity since 06/05/2019. She states that the pain only occurs with walking but makes ambulation very challenging. She states that lying flat increases her pain. The pt states that the pain is currently rated a 1/10 in severity and increases to an 8/10 while ambulating. She denies any recent fevers, falls, chills, headaches, N/V, SOB, CP, abdominal pain, and a sore throat. She has a PMHx of HTN, thyroid disease, and Asthma. She has no alleviating factors. - History of Current Complaint Chief Complaint: EDBackInjuryPain Stated Complaint: BACK AND HIP PAIN PER EMS Time Seen by Provider: 06/07/19 12:57 Hx Obtained From: Patient Onset/Duration: Gradual Onset, Lasting Weeks, Still Present, Worse Since - this date Onset/Duration: Still Present Timing: Constant, Lasting Weeks Back Pain Location: Is Discrete @ - R low back Severity Initially: Mild Severity Currently: Mild Pain Intensity: 1 - increases to a 10/10 with movement Pain Scale Used: 0-10 Numeric Aggravating Symptom(s): Movement Alleviating Symptom(s): Nothing Associated Signs And Symptoms: Positive: Negative - falls, chills, headaches, N/ V, SOB, CP, and a sore throat. Negative: Fever, Abdominal Pain - Allergies/Home Medications Allergies/Adverse Reactions: Allergies Allergy/AdvReac Type Severity Reaction Status Date / Time Environmental Allergies Allergy Congestion Uncoded 06/05/19 13:41 Home Medications: Home Medications Aspirin 81 1 tab PO DAILY 05/03/14 [History Confirmed 05/03/14] Levothyroxine TAB* [Synthroid 88 MCG TAB*] 1 tab PO DAILY 05/03/14 [History Confirmed 05/03/14] Losartan Potassium & Hydrochlo [Losartan Potassium/Hydroc 100-25 mg] 1 tab PO DAILY 05/03/14 [History Confirmed 05/03/14] Metoprolol 50 mg PO BEDTIME 05/03/14 [History Confirmed 05/03/14] Ranitidine TAB (NF) [Zantac TAB (NF)] 300 mg PO BEDTIME 05/03/14 [History Confirmed 05/03/14] Simvastatin 1 tab PO DAILY 05/03/14 [History Confirmed 05/03/14] Apixaban* [Eliquis*] 5 mg PO BID 30 Days #70 tab 06/05/19 [Rx] traMADol TAB* [Ultram*] 50 mg PO Q8HR PRN #12 tab MDD 3 tablets 06/07/19 [Rx] PMH/Surg Hx/FS Hx/Imm Hx Previously Healthy: Yes Endocrine/Hematology History: Reports: Hx Thyroid Disease Denies: Hx Diabetes Cardiovascular History: Reports: Hx Hypertension Respiratory History: Reports: Hx Asthma Denies: Hx Chronic Obstructive Pulmonary Disease (COPD) GI History: Denies: Hx Ulcer - Surgical History Surgery Procedure, Year, and Place: Repair fractured leg and wrist Infectious Disease History: Denies: Hx Clostridium Difficile, Hx Hepatitis, Hx Human Immunodeficiency Virus (HIV), Hx of Known/Suspected MRSA, Hx Shingles, Hx Tuberculosis, Hx Known/ Suspected VRE, Hx Known/Suspected VRSA, History Other Infectious Disease - Family History Known Family History: Positive: Diabetes, Other - CVA-Father - Social History Occupation: Retired Lives: With Family Alcohol Use: Daily Alcohol Amount: 1 per day Hx Substance Use: No Substance Use Type: Reports: None Hx Tobacco Use: Yes Smoking Status (MU): Former Smoker Length of Time of Smoking/Using Tobacco: 20 years Review of Systems Constitutional: Negative - recent falls Negative: Fever, Chills Negative: Chest Pain Negative: Shortness Of Breath Negative: Vomiting, Nausea Positive: Other - R back pain Negative: Headache All Other Systems Reviewed And Are Negative: Yes Physical Exam - Summary Physical Exam Summary: Constitutional: Well-developed, Well-nourished, Alert. (-) Distressed Skin: Warm, Dry HENT: Normocephalic; Atraumatic Eyes: Conjunctiva normal Neck: Musculoskeletal ROM normal neck. (-) JVD, (-) Stridor, (-) Tracheal deviation Cardio: Rhythm regular, rate normal, Heart sounds normal; Intact distal pulses; The pedal pulses are 2+ and symmetric. Radial pulses are 2+ and symmetric. (-) Murmur Pulmonary/Chest wall: Effort normal. (-) Respiratory distress, (-) Wheezes, (-) Rales Abd: Soft, (-) tenderness, (-) Distension, (-) Guarding, (-) Rebound Musculoskeletal: Tenderness in the R lower lateral back, no erythema, no warmth , no swelling. Tenderness increases with lifting of leg, no radiating tenderness Lymph: (-) Cervical adenopathy Neuro: Alert, Oriented x3 Psych: Mood and affect Normal Triage Information Reviewed: Yes Vital Signs On Initial Exam: Temp Pulse Resp BP SpO2 FiO2 Vital Signs Reviewed: Yes Procedures - Sedation Patient Received Moderate/Deep Sedation with Procedure: No Diagnostics - Laboratory Lab Statement: Any lab studies that have been ordered have been reviewed, and results considered in the medical decision making process. - Radiology Hip/Pelvis XR Radiology Interpretation Completed By: Radiologist Summary of Radiographic Findings: Impression: Osteoarthritis. No acute osseous injury. If symptoms persist, recommend repeat imaging. ED physician has reviewed this report. Lumbar Spine XR Radiology Interpretation Completed By: Radiologist Summary of Radiographic Findings: Impression: Osteoarthritis. No acute osseous injury. If symptoms persist, recommend repeat imaging. ED physician has reviewed this report. Re-Evaluation - Re-Evaluation First Eval Re-Evaluation Time: 14:28 Comment: Discussed results and plan for d/c Back Pain Course/Dx - Course Course Of Treatment: Patient is here with pain in her right lower back that only occurs with movement. Patient has minimal tenderness on exam. Patient has no hip tenderness and is able to range her hip. Patient had a UA which showed no evidence of UTI or hematuria. Patient had an x-ray which showed osteoarthritis. Patient was discharged a small prescription of tramadol for her pain which was requested by patient's daughter who is a nurse. - Diagnoses Provider Diagnoses: Osteoarthritis, Back pain Discharge ED - Sign-Out/Discharge Documenting (check all that apply): Patient Departure - Patient will be discharged home. - Discharge Plan Condition: Stable Disposition: HOME Prescriptions: traMADol TAB* [Ultram*] 50 mg PO Q8HR PRN #12 tab MDD 3 tablets PRN Reason: Pain - Severe Patient Education Materials: Osteoarthritis (ED), Back Pain (ED) Referrals: Hoda Mathias MD [Primary Care Provider] - 3 Days Additional Instructions: Take Tylenol as prescribed. Start your prescribed pain medicines as needed. Follow up with your primary care provider in 2-3 days. Return to the emergency department for any new or worsening symptoms. - Billing Disposition and Condition Condition: STABLE Disposition: Home - Attestation Statements Document Initiated by Oanhibe: Yes Documenting Scribe: Marisol Sky Provider For Whom Janna is Documenting (Include Credential): Ron Gibson MD Scribe Attestation: Omari Dolan Natalie George, scribed for Ron Gibson MD on 06/07/19 at 1828. Scribe Documentation Reviewed: Yes Provider Attestation: The documentation as recorded by the janna, Marisol Sky accurately reflects the service I personally performed and the decisions made by Ron herman MD Status of Scribe Document: Viewed
[2019-06-07] MEDS ORDERED: traMADol TAB* 50 MG PO ONE (13:03)
[2019-06-07 13:22] LABS: Urine Appearance Clear; Urine Bilirubin Negative (Negative); Urine Blood Negative (Negative); Urine Color Yellow; Urine Glucose Negative (Negative); Urine Ketones Negative (Negative); Urine Nitrite Negative (Negative); Urine Protein Negative (Negative); Urine Specific Gravity 1.015 (1.010-1.030); Urine Urobilinogen Negative (Negative)
[2019-06-07 13:25] LABS: Urine Bacteria Absent (Absent); Urine Red Blood Cell Absent (Absent); Urine Squamous Epithelial Cell Present (Absent); Urine White Blood Cell Trace(0-5/hpf) (Absent)
--- OUTSIDE RECORDS SUMMARY | 2019-06-07 14:11 | XMS REPORT | Continuity of Care Document ---
:1935 External Reference #:[id number] Author Name Olga Gipson M.D. 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 Active Problems Provider Date Chronic kidney [...] CPT Code Status Date Vaccine Lot # [id number] Given 03/11/2018 Fluzone High Dose [id number] Vital Signs Date Vital Result Comment 06/05/2019 [...] Date Facility Test Result H/L Range Note Inr/Protime 06/05/2019 [facility] Inr 1.02 Normal 0.82-1.[address] [place] [address] [phone] CBC Auto 06/05/2019 [facility] White Blood 5.8 10^3/uL Normal 3.5-10.[address] [place] [address] [phone] Red Blood Count 4.26 10^6/uL Normal 3.70-4.87 Hemoglobin 13.2 g/dL Normal 12.0-16.0 Hematocrit 39 % Normal 35-47 Mean Corpuscular Volume 91 fL Normal 80-97 Mean Corpuscular Hemoglobin 31 pg Normal 27-31 Mean Corpuscular HGB Conc 34 g/dL Normal 31-36 Red Cell Distribution Width 16 % High 10-15 Platelet Count 188 10^3/uL Normal 150-450 Mean Platelet Volume 6.9 fL Low 7.4-10.4 Abs Neutrophils 3.8 10^3/uL Normal 1.5-7.7 Abs Lymphocytes 1.2 10^3/uL Normal 1.0-4.8 Abs Monocytes 0.6 10^3/uL Normal 0-0.8 Abs Eosinophils 0.2 10^3/uL Normal 0-0.6 Abs Basophils 0.0 10^3/uL Normal 0-0.2 Abs Nucleated RBC 0.0 10^3/uL Granulocyte % 64.6 % Lymphocyte % 21.3 % Monocyte % 10.6 % Eosinophil % 2.9 % Basophil % 0.6 % Nucleated Red Blood Cells % 0.0 Comp Metabolic 06/05/2019 [facility] Sodium 137 mmol/L Normal 135-[address] [place] [address] [phone] Potassium 4.0 mmol/L Normal 3.5-5.0 Chloride 102 mmol/L Normal 101-111 Co2 Carbon Dioxide 29 mmol/L Normal 22-32 Anion Gap 6 mmol/L Normal 2-11 Glucose 146 mg/dL High 70-100 Blood Urea Nitrogen 12 mg/dL Normal 6-24 Creatinine 1.16 mg/dL High 0.51-0.95 BUN/Creatinine Ratio 10.3 Normal 8-20 Calcium 9.1 mg/dL Normal 8.6-10.3 Total Protein 6.8 g/dL Normal 6.4-8.9 Albumin 4.1 g/dL Normal 3.2-5.2 Globulin 2.7 g/dL Normal 2-4 Albumin/Globulin Ratio 1.5 Normal 1-3 Total Bilirubin 0.30 mg/dL Normal 0.2-1.0 Alkaline Phosphatase 86 U/L Normal 34-104 Alt 14 U/L Normal 7-52 Ast 23 U/L Normal 13-39 Egfr Non- 44.4 >60 Egfr 53.7 >60 2 Laboratory 06/05/2019 [facility] D Dimer > 1050 High Less 3 test finding [address] Quantitative ng/mL Than [address] [place] [address] [phone] Comp Metabolic 06/05/2019 [facility] Sodium 138 Normal 135- [address] mmol/[place] [address] [phone] Potassium 4.6 mmol/L Normal 3.5-5.0 Chloride 102 mmol/L Normal 101-111 Co2 Carbon Dioxide 29 mmol/L Normal 22-32 Anion Gap 7 mmol/L Normal 2-11 Glucose 88 mg/dL Normal 70-100 Blood Urea Nitrogen 12 mg/dL Normal 6-24 Creatinine 1.19 mg/dL High 0.51-0.95 BUN/Creatinine Ratio 10.1 Normal 8-20 Calcium 9.3 mg/dL Normal 8.6-10.3 Total Protein 6.4 g/dL Normal 6.4-8.9 Albumin 4.1 g/dL Normal 3.2-5.2 Globulin 2.3 g/dL Normal 2-4 Albumin/Globulin Ratio 1.8 Normal 1-3 Total Bilirubin 0.40 mg/dL Normal 0.2-1.0 Alkaline Phosphatase 87 U/L Normal 34-104 Alt 14 U/L Normal 7-52 Ast 23 U/L Normal 13-39 Egfr Non- 43.1 >60 Egfr 52.2 >60 4 Laboratory 06/05/2019 [facility] TSH (Thyroid 15.52 High 0.34- 5.[address] Stim Horm) mcIU/[place] [address] [phone] Comp Metabolic 05/21/2019 [facility] Sodium 140 mmol/L Normal 135-[address] [place] [address] [phone] Potassium 4.5 mmol/L Normal 3.5-5.0 Chloride 106 [...] Egfr Non- 37.3 >60 Egfr 45.1 >60 5 Laboratory 04/18/2019 [facility] TSH (Thyroid 0.85 Normal 0.34 -5.60 test finding [address] Stim Horm) mcIU/mL [place], [place] [id number] [phone] Urinalysis 03/18/2019 [facility] Urine Color Yellow Profile [address] [place] [address] [phone] Urine Appearance Clear Urine Specific [place] 1.017 Normal 1.010-1.030 Urine pH 6.0 Normal [...] Present Abnormal Absent Urine Culture And 03/18/2019 [facility] Urine Culture SEE RESULT [address] [place] [address] [phone] Basic Metabolic 03/18/2019 [facility] Sodium 131 mmol/L Low 135-[address] [place] [address] [phone] Potassium 4.3 mmol/L Normal 3.5-5.0 Chloride 96 mmol/L Low 101-111 Co2 Carbon Dioxide 28 mmol/L Normal 22-32 Anion Gap 7 mmol/L Normal 2-11 Glucose 101 mg/dL High 70-100 Blood Urea Nitrogen 18 mg/dL Normal 6-24 Creatinine 1.80 mg/dL High 0.51-0.95 BUN/Creatinine Ratio 10.0 Normal 8-20 Calcium 9.1 mg/dL Normal 8.6-10.3 Egfr Non- 26.8 >60 Egfr 32.4 >60 7 CBC Auto 03/18/2019 [facility] White Blood 10.4 10^3/uL Normal 3.5-10.[address] [place] [address] [phone] Red Blood Count 4.17 10^6/uL Normal 3.70-4.87 [...] Blood Cells % 0.1 Basic Metabolic 12/11/2018 [facility] Sodium 138 mmol/L Normal 135-145 Panel [address] [place] [address] [phone] Potassium 4.3 mmol/L Normal 3.5-5.0 Chloride 104 mmol/L Normal 101-111 Co2 Carbon Dioxide 30 mmol/L Normal 22-32 Anion Gap 4 mmol/L Normal 2-11 Glucose 104 mg/dL High 70-100 Blood Urea Nitrogen 12 mg/dL Normal 6-24 Creatinine 1.37 mg/dL High 0.51-0.95 BUN/Creatinine Ratio 8.8 Normal 8-20 Calcium 9.2 mg/dL Normal 8.6-10.3 Egfr Non- 36.7 >60 Egfr 44.4 >60 8 1 Standard intensity warfarin therapeutic range: 2.0-3.0 High intensity warfarin therapeutic range: 2.5-3.5 2 Because ethnic data is not always [...] 5 Kidney failure <15 (or dialysis) 3 Please note: The following may produce a false positive D Dimer test: - Rheumatoid factor greater than 60 IU/ml - Plasma hemoglobin greater than 0.05 gm/dl - Bilirubin greater than 50 mg/dl - Lipids greater than 1000 mg/dl - FDP greater than 20 ug/ml 4 Because ethnic data is not always [...] 15-29 5 Kidney failure <15 (or dialysis) 5 Because ethnic data is not always readily [...] 15-29 5 Kidney failure <15 (or dialysis) 6 SEE RESULT BELOW Name: AI RAGSDALE : [address]: Tina James MD Acct: [id number] Unit: [id number] AGE: 83 Location: [facility] Re03/18/19 SEX: F Status: REG REF SPEC: [id number] GUERRERO: 03/18/[address] [facility] [address]: Tina James MD REQ: [id number] RECD: 03/18/19 STATUS: COMP _ SOURCE: URINE SPDESC: ORDERED: Urine Culture Urine Source: Clean Catch Procedure Result Reported Site Urine Culture Final 03/19/19- 0936 ML No Growth (<1,000 CFU/mL) * ML - Main Lab . END OF REPORT DEPARTMENT OF PATHOLOGY, [address] [place] [address] John Miguel M.D. Director [facility] # [id number] 7 Because ethnic data is not always readily [...] 15-29 5 Kidney failure <15 (or dialysis) 8 Because ethnic data is not always readily [...] Location Provider Dx Diagnosis Office Visit 05/28/2019 [facility] Internal Sapna Borges, M46.1 Sacroiliitis, not 3:40p Medicine - Ccmob N.P. elsewhere classified Office Visit 05/21/2019 [facility] Internal Sapna Borges, I10 Essential (primary ) 3:20p Medicine - Ccmob N.P. hypertension N18.9 Chronic kidney disease, unspecified E03.9 Hypothyroidism, unspecified R41.81 Age-related cognitive decline Office Visit 04/18/2019 1:20p [facility] Internal Hoda Mathias, I10 Essential ( primary) [...] Hoda Mathias R42 [facility] Office Visit 12/24/2018 2:00p [facility] Internal Hoda Mathias, I10 Essential ( primary) [...] unspecified Hoda Mathias MD 04/18/2019 G47.00 Insomnia, asaf Mathias MD 03/25/2019 R05 Cough Hoda Mathias [...] Hoda Mathias MD Plan of Treatment Future Appointment(s):06/09/2019 10:00 am - Hoda Mathias MD at [facility] Internal Medicine - [address]/19/2019 10:40 am - Hoda Math[facility] Hoda Mathias MDR22.41 Localized swelling, mass and lump, right lower limb Functional Status Description No Information Available Mental Status Description No Information Available Referrals Refer to Dr Reason for Referral Status Appt Date Juwan Murphy MD 84 yr old female; Extensive DVT; started on Created eliquis; ER did not admit pt. [address] [place] [address] [phone]
--- OUTSIDE RECORDS SUMMARY | 2019-06-07 14:11 | XMS REPORT | Continuity of Care Document ---
:1935 External Reference #:[id number] Author Name Olga Gipson M.D. 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 Active Problems Provider Date Chronic kidney [...] CPT Code Status Date Vaccine Lot # [id number] Given 03/11/2018 Fluzone High Dose [id number] Vital Signs Date Vital Result Comment 06/05/2019 [...] Test Result H/L Range Note Inr/Protime 06/05/2019 [facility] Inr 1.02 Normal 0.82-1.[address] [place] [address] [phone] CBC Auto 06/05/2019 [facility] White Blood 5.8 10^3/uL Normal 3.5-10.[address] [place] [address] [phone] Red Blood Count 4.26 10^6/uL Normal 3.70-4.87 [...] Blood Cells % 0.0 Comp Metabolic 06/05/2019 [facility] Sodium 137 mmol/L Normal 135-[address] [place] [address] [phone] Potassium 4.0 mmol/L Normal 3.5-5.0 Chloride 102 [...] >60 Egfr 53.7 >60 2 Laboratory 06/05/2019 [facility] D Dimer > 1050 High Less 3 test finding [address] Quantitative ng/mL Than [address] [place] [address] [phone] Comp Metabolic 06/05/2019 [facility] Sodium 138 Normal 135- [address] mmol/[place] [address] [phone] Potassium 4.6 mmol/L Normal 3.5-5.0 Chloride 102 [...] >60 Egfr 52.2 >60 4 Laboratory 06/05/2019 [facility] TSH (Thyroid 15.52 High 0.34- 5.[address] Stim Horm) mcIU/[place] [address] [phone] Comp Metabolic 05/21/2019 [facility] Sodium 140 mmol/L Normal 135-[address] [place] [address] [phone] Potassium 4.5 mmol/L Normal 3.5-5.0 Chloride 106 [...] >60 Egfr 45.1 >60 5 Laboratory 04/18/2019 [facility] TSH (Thyroid 0.85 Normal 0.34 -5.60 test finding [address] Stim Horm) mcIU/mL [place], [place] [id number] [phone] Urinalysis 03/18/2019 [facility] Urine Color Yellow Profile [address] [place] [address] [phone] Urine Appearance Clear Urine Specific Rodessa 1.017 Normal 1.010-1.030 Urine pH 6.0 Normal [...] Present Abnormal Absent Urine Culture And 03/18/2019 [facility] Urine Culture SEE RESULT [address] [place] [address] [phone] Basic Metabolic 03/18/2019 [facility] Sodium 131 mmol/L Low 135-[address] [place] [address] [phone] Potassium 4.3 mmol/L Normal 3.5-5.0 Chloride 96 mmol/L Low 101-111 Co2 Carbon Dioxide 28 mmol/L Normal 22-32 Anion Gap 7 mmol/L Normal 2-11 Glucose 101 mg/dL High 70-100 Blood Urea Nitrogen 18 mg/dL Normal 6-24 Creatinine 1.80 mg/dL High 0.51-0.95 BUN/Creatinine Ratio 10.0 Normal 8-20 Calcium 9.1 mg/dL Normal 8.6-10.3 Egfr Non- 26.8 >60 Egfr 32.4 >60 7 CBC Auto 03/18/2019 [facility] White Blood 10.4 10^3/uL Normal 3.5-10.[address] [place] [address] [phone] Red Blood Count 4.17 10^6/uL Normal 3.70-4.87 [...] Blood Cells % 0.1 Basic Metabolic 12/11/2018 [facility] Sodium 138 mmol/L Normal 135-145 Panel [address] [place] [address] [phone] Potassium 4.3 mmol/L Normal 3.5-5.0 Chloride 104 [...] [address]: Tina James MD Acct: [id number] Unit: [id number] AGE: 83 Location: [facility] Re03/18/19 SEX: F Status: REG REF SPEC: [id number] GUERRERO: 03/18/[address] [facility] [address]: Tina James MD REQ: [id number] RECD: 03/18/19 STATUS: COMP _ SOURCE: URINE SPDESC: ORDERED: Urine Culture Urine Source: Clean Catch Procedure Result Reported Site Urine Culture Final 03/19/19- 0936 ML No Growth (<1,000 CFU/mL) * ML - Main Lab . END OF REPORT DEPARTMENT OF PATHOLOGY, [address] [place] [address] John Miguel M.D. Director [facility] # [id number] 7 Because ethnic data is not always [...] Location Provider Dx Diagnosis Office Visit 05/28/2019 [facility] Sapna Borges, M46.1 Sacroiliitis, not 3:40p Medicine - Ccmob N.P. elsewhere classified Office Visit 05/21/2019 [facility] Sapna Borges, I10 Essential (primary ) 3:20p Medicine - Ccmob N.P. hypertension N18.9 Chronic kidney disease, unspecified E03.9 Hypothyroidism, unspecified R41.81 Age-related cognitive decline Office Visit 04/18/2019 1:20p [facility] Hoda Mathias, I10 Essential ( primary) Medicine - Luis PAULSON hypertension E03.9 Hypothyroidism, unspecified E78.2 Mixed hyperlipidemia N18.9 Chronic kidney disease, unspecified G47.00 Insomnia, unspecified Office Visit 03/25/2019 1:00p [facility] Medicine - Hoda Mathias MD R05 Cough Ccmob I10 Essential (primary) hypertension Office Visit 03/18/2019 2:00p [facility] Tina R50.9 Fever, unspecified Medicine - MD Jacob Ccmob I95.89 Other hypotension R09.89 Oth symptoms and signs involving the circ and resp systems Office Visit 02/10/2019 2:00p [facility] Mathias R42 [facility] 12/24/2018 2:00p [facility] Hoda Mathias, I10 Essential ( primary) Medicine - Luis PAULSON hypertension Office Visit 12/10/2018 3:40p [facility] Jurgen Peacock0 Essential ( primary) Medicine [...] 10:00 am - Hoda Mathias MD at [facility] Medicine - [address]/2019 10:40 am - Hoda Mathias [facility] Hoda Mathias MDR22.41 Localized swelling, mass and lump, right lower limb Functional Status Description No Information Available Mental Status Description No Information Available Referrals Refer to Dr Reason for Referral Status Appt Date Juwan Murphy MD 84 yr old female; Extensive DVT; started on Created eliquis; ER did not admit pt. [address] [place] [address] [phone]
[2019-06-07 14:37] VITALS: BP 168/89
== END 2019-06-07 14:36 | disposition home or self-care (01) ==
LOC: ED 12:47
DX: M16.11 Unilateral primary osteoarthritis, right hip (principal); M54.9 Dorsalgia, unspecified; M51.36 Other intervertebral disc degeneration, lumbar region; M47.816 Spondylosis without myelopathy or radiculopathy, lumbar region; I10 Essential (primary) hypertension; E03.9 Hypothyroidism, unspecified; J45.909 Unspecified asthma, uncomplicated; I82.401 Acute embolism and thrombosis of unspecified deep veins of right lower extremity; Z87.891 Personal history of nicotine dependence; Z79.01 Long term (current) use of anticoagulants; Z79.82 Long term (current) use of aspirin; Z79.890 Hormone replacement therapy; Z79.899 Other long term (current) drug therapy
CPT/HCPCS: 72110; 81003; 81015; 87086; 99282; A9270-GY